=== PATIENT | male | born 1990 | race Caucasian/White ===

== ENCOUNTER → 2021-02-22 12:59 | Outpatient (BNVA) | payer BC, SELFPAY | PROVIDERS: PCP Internal Medicine; Referring Provider Internal Medicine; Visit Provider Surgery | DX: K60.3 Anal fistula (principal) | CPT/HCPCS: 46600 ==

== ENCOUNTER 2021-04-04 06:07 | Day surgery (SDC) | payer BC, SELFPAY ==
[2021-03-29 08:58] VITALS: BMI 30.9
--- NOTE | 2021-04-03 10:16 | HO.ANESPROP2 ---
Documented by User: Hortensia Valle NP 04/03/21 10:16 HPI - Anesthesia Eval Consult details Narrative: 30yo M EUA with Seton Placement & Fistulotomy PMFSH Active Problems Active Problems: All Active Problems (Updated 02/22/21 @ 13:23 by Jerardo Kebede MD) Anal fistula (Acute) Past Medical History Medical History Anal fistula Family History Family History Mother Breast cancer Surgical History Surgical History History of tonsillectomy Social History Social History Alcohol intake: current Alcohol intake frequency: a few times a week Patient Tobacco Use Status: Former Tobacco user Quit Date: 2015 Tobacco use type: Cigarette Years Smoked: 5 Smoked in Last 30 Days: No Use of substances other than those prescribed or required for medical reasons: No Are you DNR?: No Advance Directives: No Advance Directives Information Provided: Yes Meds Allergies Allergy/AdvReac Type Severity Reaction Status Date / Time No Known Allergies Allergy Verified 04/04/21 06:15 Exam Exam Date and Time: April 03, 2021 1016 Height,Weight and Vital Signs: Height 5 ft 5 in Weight 84.368 kg Assessment and Plan Assessment Anesthesia Assessment: Chart Reviewed Documented by User: Katja John MD 04/04/21 08:36 PMFSH Past Medical History Medical History Anal fistula Family History Family History Mother Breast cancer Surgical History Surgical History History of tonsillectomy History of Problems with Anesthesia: No Social History Social History Alcohol intake: current Alcohol intake frequency: a few times a week Patient Tobacco Use Status: Former Tobacco user Quit Date: 2015 Tobacco use type: Cigarette Years Smoked: 5 Smoked in Last 30 Days: No Use of substances other than those prescribed or required for medical reasons: No Are you DNR?: No Advance Directives: No Advance Directives Information Provided: Yes Meds Allergies Allergy/AdvReac Type Severity Reaction Status Date / Time No Known Allergies Allergy Verified 04/04/21 06:15 Exam Airway Mallampati Class: II TM Dist: >3cm Neck ROM: Full Loose/Missing/Broken Teeth: No Heart: RRR Lungs: CTA Assessment and Plan Assessment Anesthesia Assessment: Anesthesia Plan Discussed Final Anesthetic Review History of Problems with Anesthesia: No NPO: Yes ASA Class: I Final Preanesthetic Review: Meds/Allgs Chart Reviewed, Consent Obtained/Reviewed and Anes Risks/Benef Reviewed Patient Risk: Low Procedure Risk: Intermediate Anesthetic Plan Anesthetic Plan: GA Disposition: Standard PACU
[2021-04-04] VITALS (8 sets, daily range): BP systolic 118–143; BP diastolic 65–94; PULSE 76–86; RESP 16–18; TEMP 36.1–36.8; O2SAT 93–98; BMI 28.2
[2021-04-04] MEDS: Lactated Ringers 1,000 ML 100 ML IVCONT (06:32)
--- NOTE | 2021-04-04 07:30 | MHC.SHP ---
Pre-Procedural Eval Section A Date of Service: 04/04/21 Section B Chief Complaint: Anal Fistula Allergies: Allergies Allergy/AdvReac Type Severity Reaction Status Date / Time No Known Allergies Allergy Verified 04/04/21 06:15 Plan I have reviewed the history and physical and performed a pertinent physical examination on my patient. No changes have occurred unless specified.
--- NOTE | 2021-04-04 08:20 | P.OP_ITS ---
Operative Note Operative Note Date of Service: 04/04/21 Narrative: Preop diagnosis: Recurrent anal fistula Postop diagnosis: The same Procedure: Exam under anesthesia, placement of seton Surgeon: Jerardo Kebede MD Patient is a 30-year-old male with an area of recurrent drainage on the right side of his anus consistent with anal fistula. He did have an fistula about 4 years ago as well and had required seton at that time. He did well thereafter until about 2 months ago when he again notice recurrent drainage. He understood the technique of exam under anesthesia and likely seton placement. He was aware of the risks, benefits, and alternatives. He was brought to the operating room placed in prone nydia-knife position under general anesthesia via endotracheal tube. The buttocks were retracted with wide tape laterally. The perianal was prepped draped usual sterile fashion. A surgical time-out was done. The patient received Cefotan 2 g IV preoperatively. I infiltrated the perianal area with lidocaine 1%. Examination of the anal orifice revealed what appeared to be an induration on the right side the perianal area just posteriorly. Iinserted the BuieSmith retractor and examined the anal canal circumferentially. Examination of the anal orifice did not revea l any obvious internal sinus although there seemed to be some mild induration along the dentate line radial to the external sinus. I tried to insert a probe through the external sinus gently. Initially, you could not advance this at all in view of the significant fibrotic changes and poorly defined tract. I therefore incised this scarred area using electrocautery. I removed the scar tissue on the skin and again passed the probed this time gently. I followed the list resistance that represent the fistula and this came through on the dentate line radial to the external sinus. I passed the yellow vessel loop as a seton through this. I tied the seton as a loop using a silk 2 0 tie to close this. I cauterized the opening of the external sinus. I examined the rest of the perianal area as well as the dentate line and there did not seem to be any other diseased tissue. I infiltrated the perianal area with Marcaine 0.5% for postop analgesia and the procedure was completed The patient tolerated procedure well. There were no complication noted. Initial final counts of sponges and instruments were correct. Estimated blood loss about 5 cc. The patient is extubated without difficulty and transferred to the recovery room with stable vital signs.
== END 2021-04-04 10:07 | disposition home or self-care (01) ==
PROVIDERS: PCP Internal Medicine; Visit Provider Surgery
PROC: (CPT 46020; principal; 2021-04-04 07:30)
DX: K60.3 Anal fistula (principal); K62.5 Hemorrhage of anus and rectum; K62.89 Other specified diseases of anus and rectum
CPT/HCPCS: 46020; J0131; J1100; J1885; J2250; J2405; J3010

== ENCOUNTER → 2021-04-17 15:38 | Outpatient (BNVA) | payer BC, SELFPAY | PROVIDERS: PCP Internal Medicine; Referring Provider Internal Medicine; Visit Provider Surgery ==

== ENCOUNTER → 2021-05-30 14:56 | Outpatient (BNVA) | payer BC, SELFPAY | PROVIDERS: PCP Internal Medicine; Referring Provider Internal Medicine; Visit Provider Surgery ==

== ENCOUNTER → 2021-07-05 15:05 | Outpatient (BNVA) | payer BC, SELFPAY | PROVIDERS: PCP Internal Medicine; Visit Provider Surgery ==

== ENCOUNTER → 2021-07-26 14:57 | Outpatient (BNVA) | payer BC, SELFPAY | PROVIDERS: PCP Internal Medicine; Referring Provider Internal Medicine; Visit Provider Surgery ==

== ENCOUNTER → 2021-08-28 13:55 | Outpatient (BNVA) | payer OTHER, SELFPAY | PROVIDERS: PCP Internal Medicine; Visit Provider Surgery | DX: K60.3 Anal fistula (principal) | CPT/HCPCS: 99212 ==

== ENCOUNTER → 2021-11-08 14:33 | Outpatient (BNVA) | payer OTHER, SELFPAY | PROVIDERS: PCP Internal Medicine; Visit Provider Surgery | DX: K60.3 Anal fistula (principal) | CPT/HCPCS: 99212 ==

== ENCOUNTER → 2021-12-21 15:52 | Outpatient (BNVA) | payer OTHER, SELFPAY | PROVIDERS: PCP Internal Medicine; Visit Provider Surgery | DX: K60.3 Anal fistula (principal) | CPT/HCPCS: 99212 ==

== ENCOUNTER → 2022-01-24 15:57 | Outpatient (BNVA) | payer OTHER, SELFPAY | PROVIDERS: PCP Internal Medicine; Visit Provider Surgery | DX: K60.3 Anal fistula (principal) | CPT/HCPCS: 99212 ==

== ENCOUNTER → 2022-08-01 15:17 | Outpatient (BNVA) | payer BC, SELFPAY | PROVIDERS: PCP Internal Medicine; Visit Provider Surgery | DX: Z13.89 Encounter for screening for other disorder (principal) ==

== ENCOUNTER → 2022-08-29 14:24 | Outpatient (BNVA) | payer BC, SELFPAY | PROVIDERS: PCP Internal Medicine; Visit Provider Surgery | DX: Z13.89 Encounter for screening for other disorder (principal) ==

== ENCOUNTER → 2022-09-26 14:23 | Outpatient (BNVA) | payer BC, SELFPAY | PROVIDERS: PCP Internal Medicine; Visit Provider Surgery ==

== ENCOUNTER 2022-11-26 14:13 | Outpatient (AMB) | payer BC, SELFPAY ==
[2022-11-26 14:27] VITALS: BP 129/66; PULSE 76; BMI 29.6
--- NOTE | 2022-11-26 14:27 | MHC.OFFVIS ---
Intake Vital Signs 11/26/22 14:27 Height 5 ft 5 in Weight 178 lb BMI 29.6 BP 129/66 Blood Pressure Location Rt brachial Position Sitting Pulse 76 Intake Visit Reasons: 2 month follow up seton Intake Note: This patient presents for a two month follow-up assessment for seton. Patient c/o; ?abscess, drainage. 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 He says that he continues to have what appears to be a recurrent drainage from the area lateral to the open site. He feels that this kind of swells up periodically as well. He denies any new pain [facility] Medical History Anal fistula Surgical History History of tonsillectomy Family History Mother Breast cancer Social History Alcohol intake: current Alcohol intake frequency: a few times a week Patient Tobacco Use Status: Former Tobacco user Quit Date: 2015 Tobacco use type: Cigarette Years Smoked: 5 Review of Systems Const Denies chills and Denies fever(s) Card Denies chest pain, Denies dyspnea and Denies dyspnea on exertion Resp Denies cough, Denies dyspnea and Denies dyspnea on exertion GI Denies hematochezia and Denies change in bowel habits Denies hematuria and Denies difficulty urinating Musc Denies back pain and Denies limited range of motion Neuro Denies focal weakness and Denies convulsions Psych Denies depression and Denies mood swings Physical Exam Vital Signs: Last Vital Signs Pulse 76 11/26/22 14:27 BP 129/66 11/26/22 14:27 BMI result Body Mass Index 29.6 Const General: comfortable and no acute distress Resp Effort & Inspection: normal respiratory effort Cardio Rate: regular rate GI Other: Rectal exam shows the seton to be in place on the right side, residual fistula tract short but lateral to this is note of what appears to be some residual induration from the old sinus tract Assessment & Plan Assessment & Plan (1) Anal fistula: Code(s): K60.3 - Anal fistula Plan: He seems to have persistent induration on the lateral area of the remaining fistula despite having the seton in place. I am going to order for an MRI rule out any other resolved tracks surrounding the area. I will see him in the office thereafter. Will keep the seton in place. I did not tighten it at this time. Coding Level of Care Code Est Pt Level 3 (83935) Diagnoses Anal fistula K60.3
== END 2022-11-26 15:02 | disposition home or self-care (01) ==
PROVIDERS: PCP Internal Medicine; Visit Provider Surgery
DX: K60.3 Anal fistula (principal)
CPT/HCPCS: 99213

== ENCOUNTER → 2022-11-26 14:13 | Outpatient (BNVA) | payer BC, SELFPAY | PROVIDERS: PCP Internal Medicine; Visit Provider Surgery ==

== ENCOUNTER 2023-01-14 08:09 | Outpatient (REF) | payer BC, SELFPAY ==
--- NOTE | ~2023-01-14 | MR_ITS ---
EXAMINATION: MR PELVIS WITHOUT AND WITH CONTRAST CLINICAL INFORMATION: Anal fistula. COMPARISON: None available. TECHNIQUE: Multiple routine MRI sequences through the pelvis were obtained on a high-field 1.5 Aracely MRI before and after the uneventful administration of 8 mL Gadavist gadolinium-based IV contrast. FINDINGS: Seton extending from the midline posterior anal verge (image 30 series 9) to the left intergluteal region. No associated increased T2 signal, enhancement nor inflammatory changes. Linear T2 dark observation in the right intersphincteric plane starting at the level of the anal verge towards the right intergluteal fold (image 23 series 6 and image 14 series 7) without significant associated enhancement nor inflammatory changes, possibly representing scarring sequela of prior fistulous tract or intervention. No patent fistulous tract. No perianal abscess or collection. Normal size of the prostate gland. Symmetric seminal vesicles. Normal urinary bladder. No pelvic lymphadenopathy. No free fluid. No acute or aggressive-appearing osseous abnormalities. MR/MR pelvis wo/w con IMPRESSION: 1. Seton extending from the midline posterior anal verge to the left intergluteal region. No associated inflammatory changes. 2. Thin bandlike area of T2 dark scarring in the right intergluteal space at the level of the anal verge, possibly sequela of prior fistula or intervention. No associated inflammatory changes. 3. No perianal abscess or collection.
[2023-01-14] MEDS: gadobutroL 10 ML VIAL IVPUSH (09:14)
== END 2023-01-14 08:10 | disposition home or self-care (01) ==
LOC: HO.MRI 08:09
PROVIDERS: PCP Internal Medicine; Visit Provider Surgery
DX: K60.3 Anal fistula (principal)
CPT/HCPCS: 72197; A9585

== ENCOUNTER 2023-01-24 09:06 | Outpatient (AMB) | payer BC, SELFPAY ==
[2023-01-24 09:08] VITALS: BP 122/63; PULSE 66; BMI 28.3
--- NOTE | 2023-01-24 09:08 | A.OFFVIS_ITS ---
Intake Vital Signs 01/24/23 09:08 Height 5 ft 5 in Weight 170 lb BMI 28.3 BP 122/63 Blood Pressure Location Rt brachial Position Sitting Pulse 66 Intake Visit Reasons: Seton with persistent fistula, MRI results Intake Note: This patient presents for a follow-up assessment for MRI results, seton. Patient c/o; reports no changes or complaints at this time. 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 I had scheduled him for an MRI a as he seemed to have some persistence of a fistulous tract despite the seton in place. He otherwise denies any new complaints. He describes some scanty drainage from the fistula tract. [facility] Medical History Anal fistula Surgical History History of tonsillectomy Family History Mother Breast cancer Social History Alcohol intake: current Alcohol intake frequency: a few times a week Patient Tobacco Use Status: Former Tobacco user Quit Date: 2015 Tobacco use type: Cigarette Years Smoked: 5 Review of Systems Const Denies chills and Denies fever(s) Card Denies chest pain, Denies dyspnea and Denies dyspnea on exertion Resp Denies cough, Denies dyspnea and Denies dyspnea on exertion GI Denies hematochezia and Denies change in bowel habits Denies hematuria and Denies difficulty urinating Musc Denies back pain and Denies limited range of motion Neuro Denies focal weakness and Denies convulsions Psych Denies depression and Denies mood swings Physical Exam Vital Signs: Last Vital Signs Pulse 66 01/24/23 09:08 BP 122/63 01/24/23 09:08 BMI result Body Mass Index 28.3 Const General: comfortable and no acute distress Resp Effort & Inspection: normal respiratory effort Cardio Rate: regular rate GI Other: Rectal exam shows the seton in place with very short residual fistula tract, no new induration, no sinus. The old tract lateral to the existing 1 to have healed Assessment & Plan Assessment & Plan (1) Anal fistula: Code(s): K60.3 - Anal fistula Plan: He has MRI does not reveal any other fistulous tracts or any persistent tract lateral to the residual short tract. I therefore tighten the seton to make this snug. This remaining tract is actually very short. I told him that I would expect this to completely cut through soon. I will see him again in the office in about month. Coding Level of Care Code Est Pt Level 3 (04663) Diagnoses Anal fistula K60.3
== END 2023-01-24 09:32 | disposition home or self-care (01) ==
PROVIDERS: PCP Internal Medicine; Visit Provider Surgery
DX: K60.3 Anal fistula (principal)
CPT/HCPCS: 99213

== ENCOUNTER → 2023-01-24 09:06 | Outpatient (BNVA) | payer BC, SELFPAY | PROVIDERS: PCP Internal Medicine; Visit Provider Surgery ==

== ENCOUNTER 2023-02-21 15:10 | Outpatient (AMB) | payer BC, SELFPAY ==
--- NOTE | 2023-02-21 15:15 | MHC.OFFVIS ---
Intake Vital Signs 02/21/23 15:19 Height 5 ft 5 in Weight 169 lb BMI 28.1 BP 140/61 H Blood Pressure Location Rt brachial Position Standing Pulse 92 Intake Visit Reasons: 4 wk follow up Seton with persistent fistula Intake Note: Patient here for 4wk f/u seton with persistent fistula. Reports no changes or convcerns. 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 He says that the seton finally had fallen off about 2 weeks ago. He denies any new swelling or discharge. He feels well overall. [facility] Medical History Anal fistula Surgical History History of tonsillectomy Family History Mother Breast cancer Social History Alcohol intake: current Alcohol intake frequency: a few times a week Patient Tobacco Use Status: Former Tobacco user Quit Date: 2015 Tobacco use type: Cigarette Years Smoked: 5 Review of Systems Const Denies chills and Denies fever(s) Card Denies chest pain, Denies dyspnea and Denies dyspnea on exertion Resp Denies cough, Denies dyspnea and Denies dyspnea on exertion GI Denies hematochezia and Denies change in bowel habits Denies hematuria and Denies difficulty urinating Musc Denies back pain and Denies limited range of motion Neuro Denies focal weakness and Denies convulsions Psych Denies depression and Denies mood swings Physical Exam Vital Signs: Last Vital Signs Pulse 92 02/21/23 15:19 BP 140/61 H 02/21/23 15:19 BMI result Body Mass Index 28.1 Const General: comfortable and no acute distress Resp Effort & Inspection: normal respiratory effort GI Other: Rectal exam shows that the seton is gone. There is no residual induration, no new sinus, no discharge Assessment & Plan Assessment & Plan (1) Anal fistula: Code(s): K60.3 - Anal fistula Plan: Status post seton placement. He seton was cut through completely. There is no residual induration. There is no evidence of any new sinus. He can therefore follow up on a p.r.n. basis. Coding Level of Care Code Est Pt Level 2 (83480) Diagnoses Anal fistula K60.3
[2023-02-21 15:19] VITALS: BP 140/61; PULSE 92; BMI 28.1
== END 2023-02-21 15:36 | disposition home or self-care (01) ==
PROVIDERS: PCP Internal Medicine; Visit Provider Surgery
DX: K60.3 Anal fistula (principal)
CPT/HCPCS: 99212

== ENCOUNTER → 2023-02-21 15:10 | Outpatient (BNVA) | payer BC, SELFPAY | PROVIDERS: PCP Internal Medicine; Visit Provider Surgery ==